=== PATIENT | female | born 1975 | race Two or more races ===

== ENCOUNTER 2022-12-14 11:45 | Emergency (ER) | payer OTHER ==
[~2022-12-14] VITALS: Ht 162.6 cm; Wt 63.5 kg
[2022-12-14] MEDS ORDERED: TUSNEL LIQUID178 ML PO (14:24)
[2022-12-14] MEDS ORDERED: ZITHROMAX500 MG PO (14:24)
== END 2022-12-14 14:56 | disposition home or self-care (01) ==
LOC: ER 11:45
PROVIDERS: General Practice
DX: B34.9 Viral infection, unspecified (principal); Z20.822 Contact with and (suspected) exposure to COVID-19